=== PATIENT | male | born 1955 | race Asian ===

== ENCOUNTER 2025-01-02 18:39 | Emergency (ER) | payer MEDICAID, OTHER ==
[~2025-01-02] VITALS: Ht 172.7 cm; Wt 80.0 kg
[2025-01-02 18:51] VITALS: O2SAT 100
[2025-01-02 19:24] LABS: BASOPHILS % 0.9 % (0.0-2.0); EOSINOPHILS % 3.3 % (0.0-5.0); HEMATOCRIT. 37.2 % (42.0-52.0); HEMOGLOBIN. 12.2 g/dL (14.0-18.0); LYMPHOCYTES % 17.3 % (20.0-50.0); MEAN PLATELET VOLUME 8.8 fl (7.4-10.4); MONOCYTES % 8.9 % (2.0-8.0); NEUTROPHILS % 69.6 % (40.0-76.0); PLATELET 307 x1000/uL (130-400); RED BLOOD CELL COUNT 4.64 mill/uL (4.7-6.1); RED CELL DISTRIBUTION WIDTH 14.5 % (11.6-14.6)
[2025-01-02 19:34] LABS: CREATININE 1.4 mg/dL (0.6-1.3)
[2025-01-02 19:35] LABS: UREA NITROGEN BLOOD 17.0 mg/dL (9-23)
[2025-01-02] MEDS: POTASSIUM CHLORIDE 20MEQ/PACKET PO ONE (20:23)
[2025-01-02] MEDS: SODIUM CHLORIDE 0.9% 1,000 ML IV ONE (20:24)
[2025-01-02 20:28] LABS: CLARITY URINE CLEAR (CLEAR); GLUCOSE URINE 3+ (NEGATIVE); KETONES URINE TRACE (NEGATIVE); LEUKOCYTE ESTERASE URINE NEGATIVE (NEGATIVE); NITRITE URINE NEGATIVE (NEGATIVE); OCCULT BLOOD URINE 3+ (NEGATIVE); PH URINE 6.5 (4.5-8.0); PROTEIN URINE 2+ (NEGATIVE); SPECIFIC GRAVITY URINE 1.014 (1.005-1.030); UROBILINOGEN URINE 0.2 E.U./dL (0.2-1.0)
[2025-01-02] MEDS: KCL 10MEQ/50ML PREMIX 50 ML IV ONE (20:33)
[2025-01-02 20:49] LABS: COLOR URINE STRAW (YELLOW)
[2025-01-02 20:51] LABS: BACTERIA URINE NONE SEEN; MUCUS URINE TRACE /lpf (NONE/TRACE); RBC URINE 0-2 /hpf (0-2); SQUAMOUS EPITHELIAL CELL URINE RARE /lpf (RARE/1+); WBC URINE 0-2 /hpf (0-2)
[2025-01-02] MEDS: CEFTRIAXONE 2GM/50ML 50 ML IV ONE (21:25)
[2025-01-02 23:51] VITALS: BP 167/91; PULSE 100; RESP 22; TEMP 37.8; O2SAT 100
== END 2025-01-03 00:17 | disposition short-term general hospital (02) ==
LOC: ER 18:39 → CMPBEDREQ 01-03 08:03
DX: R33.8 Other retention of urine (principal); E87.6 Hypokalemia; N17.9 Acute kidney failure, unspecified; N13.6 Pyonephrosis; E11.9 Type 2 diabetes mellitus without complications; I10 Essential (primary) hypertension; Z79.899 Other long term (current) drug therapy
CPT/HCPCS: 80048; 81003; 85025; 36415; 74176; 51702; 96367; 96365; 99291; J0696; J3480; J7030; Z7610

== ENCOUNTER 2025-01-16 17:33 | Emergency (ER) | payer OTHER ==
[~2025-01-16] VITALS: Ht 180.3 cm; Wt 85.0 kg
[2025-01-16 17:40] VITALS: TEMP 36.9; O2SAT 99
[2025-01-16 18:51] VITALS: BP 157/72; PULSE 99; RESP 14; O2SAT 99
== END 2025-01-16 18:56 | disposition home or self-care (01) ==
LOC: ER 17:33
DX: T83.098A Other mechanical complication of other urinary catheter, initial encounter (principal); E11.9 Type 2 diabetes mellitus without complications; I10 Essential (primary) hypertension; X58.XXXA Exposure to other specified factors, initial encounter; Y93.89 Activity, other specified; Y92.89 Other specified places as the place of occurrence of the external cause; Y99.8 Other external cause status
CPT/HCPCS: 99282

== ENCOUNTER 2025-02-06 20:16 | Emergency (ER) | payer OTHER ==
[~2025-02-06] VITALS: Ht 185.4 cm; Wt 55.0 kg
[2025-02-06 20:19] VITALS: O2SAT 98
[2025-02-06] MEDS: KETOROLAC 15MG/ML VIAL IM ONE (21:18)
[2025-02-06 22:05] VITALS: BP 133/78; PULSE 85; RESP 14; TEMP 36.8; O2SAT 99
== END 2025-02-06 22:32 | disposition home or self-care (01) ==
LOC: ER 20:16
DX: T83.091A Other mechanical complication of indwelling urethral catheter, initial encounter (principal); R33.9 Retention of urine, unspecified; R10.24 Suprapubic pain; E11.9 Type 2 diabetes mellitus without complications; I10 Essential (primary) hypertension; Y73.8 Miscellaneous gastroenterology and urology devices associated with adverse incidents, not elsewhere classified
CPT/HCPCS: 99284; 51702; 96372; J1885

== ENCOUNTER 2025-02-09 23:18 | Emergency (ER) | payer OTHER ==
[~2025-02-09] VITALS: Ht 172.7 cm; Wt 71.3 kg
[2025-02-09 23:19] VITALS: O2SAT 99
[2025-02-10 00:45] LABS: BASOPHILS % 0.9 % (0.0-2.0); EOSINOPHILS % 1.2 % (0.0-5.0); HEMATOCRIT. 36.4 % (42.0-52.0); HEMOGLOBIN. 11.9 g/dL (14.0-18.0); LYMPHOCYTES % 22.4 % (20.0-50.0); MEAN PLATELET VOLUME 8.3 fl (7.4-10.4); MONOCYTES % 11.5 % (2.0-8.0); NEUTROPHILS % 64.0 % (40.0-76.0); PLATELET 235 x1000/uL (130-400); RED BLOOD CELL COUNT 4.41 mill/uL (4.7-6.1); RED CELL DISTRIBUTION WIDTH 15.8 % (11.6-14.6)
[2025-02-10 01:04] LABS: CREATININE 0.9 mg/dL (0.6-1.3)
[2025-02-10 01:05] LABS: UREA NITROGEN BLOOD 11 mg/dL (9-23)
[2025-02-10 04:34] VITALS: BP 148/70; PULSE 88; RESP 15; TEMP 37.2; O2SAT 100
== END 2025-02-10 04:35 | disposition home or self-care (01) ==
LOC: ER 23:18 → CMPBEDREQ 02-10 07:35
DX: T83.091A Other mechanical complication of indwelling urethral catheter, initial encounter (principal); E11.9 Type 2 diabetes mellitus without complications; E87.1 Hypo-osmolality and hyponatremia; I10 Essential (primary) hypertension; Y73.8 Miscellaneous gastroenterology and urology devices associated with adverse incidents, not elsewhere classified; Y84.6 Urinary catheterization as the cause of abnormal reaction of the patient, or of later complication, without mention of misadventure at the time of the procedure
CPT/HCPCS: 36415; 51702; 74176; 80048; 85025; 99284

== ENCOUNTER 2025-03-19 20:23 | Emergency (ER) | payer OTHER ==
[~2025-03-19] VITALS: Ht 172.7 cm; Wt 70.0 kg
[2025-03-19 20:46] VITALS: O2SAT 99
[2025-03-19 23:02] LABS: COLOR URINE YELLOW (YELLOW); GLUCOSE URINE TRACE (NEGATIVE); KETONES URINE NEGATIVE (NEGATIVE); LEUKOCYTE ESTERASE URINE 1+ (NEGATIVE); NITRITE URINE NEGATIVE (NEGATIVE); OCCULT BLOOD URINE 3+ (NEGATIVE); PH URINE 6.5 (4.5-8.0); PROTEIN URINE 1+ (NEGATIVE); SPECIFIC GRAVITY URINE 1.010 (1.005-1.030); UROBILINOGEN URINE 0.2 E.U./dL (0.2-1.0)
[2025-03-19 23:15] LABS: CLARITY URINE SL HAZY (CLEAR)
[2025-03-19 23:17] LABS: RBC URINE 50-100 /hpf (0-2); SQUAMOUS EPITHELIAL CELL URINE RARE /lpf (RARE/1+)
[2025-03-19 23:18] LABS: BACTERIA URINE TRACE; MUCUS URINE TRACE /lpf (NONE/TRACE)
[2025-03-19 23:30] VITALS: BP 140/75; PULSE 85; RESP 18; TEMP 36.6; O2SAT 100
[2025-03-19] MEDS ORDERED: CEFP200T13 MT (23:34)
== END 2025-03-19 23:50 | disposition home or self-care (01) ==
LOC: ER 20:23
DX: T83.518A Infection and inflammatory reaction due to other urinary catheter, initial encounter (principal); N39.0 Urinary tract infection, site not specified; J45.909 Unspecified asthma, uncomplicated; I10 Essential (primary) hypertension; E11.9 Type 2 diabetes mellitus without complications; Y84.6 Urinary catheterization as the cause of abnormal reaction of the patient, or of later complication, without mention of misadventure at the time of the procedure
CPT/HCPCS: 51702; 81003; 99284

== ENCOUNTER 2025-03-27 15:02 | Emergency (ER) | payer OTHER ==
[~2025-03-27] VITALS: Ht 177.8 cm; Wt 72.0 kg
[~2025-03-27 15:02] MED LIST: CEFP200T13 MT
[2025-03-27 15:06] VITALS: O2SAT 100
[2025-03-27 16:22] LABS: CLARITY URINE CLEAR (CLEAR); COLOR URINE YELLOW (YELLOW); GLUCOSE URINE 3+ (NEGATIVE); KETONES URINE NEGATIVE (NEGATIVE); LEUKOCYTE ESTERASE URINE NEGATIVE (NEGATIVE); NITRITE URINE NEGATIVE (NEGATIVE); OCCULT BLOOD URINE 2+ (NEGATIVE); PH URINE 6.5 (4.5-8.0); PROTEIN URINE TRACE (NEGATIVE); SPECIFIC GRAVITY URINE 1.014 (1.005-1.030); UROBILINOGEN URINE 0.2 E.U./dL (0.2-1.0)
[2025-03-27 17:37] LABS: BACTERIA URINE TRACE; SQUAMOUS EPITHELIAL CELL URINE RARE /lpf (RARE/1+); WBC URINE 0-2 /hpf (0-2)
[2025-03-27 18:37] VITALS: BP 144/68; PULSE 87; RESP 16; TEMP 36.8; O2SAT 100
== END 2025-03-27 18:51 | disposition home or self-care (01) ==
LOC: ER 15:02
DX: T83.091A Other mechanical complication of indwelling urethral catheter, initial encounter (principal); E11.9 Type 2 diabetes mellitus without complications; I10 Essential (primary) hypertension; J45.909 Unspecified asthma, uncomplicated; Z46.6 Encounter for fitting and adjustment of urinary device; Y73.8 Miscellaneous gastroenterology and urology devices associated with adverse incidents, not elsewhere classified
CPT/HCPCS: 51702; 81003; 99284